=== PATIENT | female | born 1970 | race African-American/Black ===

== ENCOUNTER 2018-09-28 22:21 | Emergency (ER) | payer BC ==
[2018-09-28] MEDS ORDERED: Sodium Chloride 0.9% 1,000 ML ONE (22:33)
[2018-09-28 23:15] LABS: Anion Gap 23 mmol/L (10-20); BUN (Urea Nitrogen) 6 mg/dL (7.0-18.7); Calc. Creatinine Clearance 0 mL/min (70-130); Calcium 9.8 mg/dL (7.8-10.44); Carbon Dioxide 14 mmol/L (22-29); Chloride 96 mmol/L (98-107); Estimated GFR-MDRD 52; Glucose 540 mg/dL (70-105); Potassium 3.9 mmol/L (3.5-5.1); Sodium 129 mmol/L (136-145)
[2018-09-28] MEDS ORDERED: Insulin Regular 300 UNITS/3 ML VIAL ONE (23:30)
[2018-09-28 23:51] LABS: Base Excess-Venous -10.1 mmol/L (-2.0 to 3.0); Bicarbonate (HCO3v) 14.8 mmol/L (22.0-28.0); CO2 Tension (PvCO2) 29.7 mmHg (40.0-50.0)
[2018-09-28 23:52] LABS: Chloride 99 mmol/L (98-107); Hemoglobin - Calc 14.2 g/dL (12.0-16.0); Potassium 3.5 mmol/L (3.5-5.1); Sodium 130 mmol/L (138-145); T. Carbon Dioxide 15.7 mmol/L (22.0-28.0); vO2 Saturation-calc 84.7 % (60.0-85.0)
[2018-09-28 23:58] LABS: #Basophils 0.1 thou/uL (0.0-0.2); #Eosinphils 0.1 thou/uL (0.0-0.7); #Lymphocytes 2.3 thou/uL (1.20-3.40); #Monocytes 0.5 thou/uL (0.11-0.59); #Neutrophils 3.6 thou/uL (1.40-6.50); %Basophils 1.7 % (0.0-1.0); %Eosinophils 0.9 % (0.0-10.0); %Lymphocytes 34.5 % (21.0-51.0); %Monocytes 7.8 % (0.0-10.0); %Neutrophils 55.1 % (42.0-75.0); Anisocytosis MODERATE=16-30 cells (100X) (0-5/hpf); Hemoglobin 13.7 g/dL (12.0-16.0); MDiff Complete? YES; Mean Corpuscular HGB CONC 30.6 g/dL (32.0-36.0); Mean Corpuscular Hemoglobin 22.7 pg (27.0-31.0); Mean Corpuscular Volume 74.2 fL (78.0-98.0); Mean Platelet Volume 8.9 fL (7.4-10.4); Microcytosis MODERATE=15-30 cells (100X) (0-5/hpf); Platelet Count 214 thou/uL (130-400); Platelet Morphology Comment Appears Adequate; RBC Distribution Width 18.8 % (11.5-14.5); Red Blood Cell (RBC) Count 6.03 mill/uL (4.20-5.40); Spherocytes SLIGHT = 1-5 cells (100X) (None Seen); Tear Drops SLIGHT = 2-5 cells (100X) (0-1/hpf); White Blood Cell (WBC) Count 6.6 thou/uL (4.8-10.8)
[2018-09-29] MEDS ORDERED: Sodium Chloride 0.9% 0 ML ONE (00:05)
== END 2018-09-29 01:05 | disposition short-term general hospital (02) ==
LOC: NAV ERS 22:21
DX: E10.10 Type 1 diabetes mellitus with ketoacidosis without coma (principal)
CPT/HCPCS: 36416; 80048; 82010; 82330; 82803; 85014; 85025; 96361; 96365; 36415-59; J1815; J3490; J7050